=== PATIENT | male | born 1945 | race Caucasian/White ===

== ENCOUNTER 2023-07-23 13:46 | Emergency (ER) | payer OTHER, SELFPAY ==
[2023-07-23 13:48] VITALS: BP 175/83
[2023-07-23 17:16] VITALS: BP 186/83
--- NOTE | 2023-07-23 20:59 | ED.GENMED ---
History of Present Illness
General
Chief Complaint: Head Injury
Source: patient
Exam Limitations: none
Time Seen by Provider: 07/23/23 15:42
Nursing documentation reviewed up to this point in time: agreed with
Travel History
Have you had any contact with someone who has COVID-19?: No
Do you have any symptoms of coronavirus? Fever > 100 degrees, chills, cough, shortness of breath, sore throat, loss of taste or smell, muscle aches, or headache?: No
History of Present Illness
History of Present Illness:
Patient states he tripped and fell this AM. Hit face on floor. No LOC. Sustained lac to right eyebrow, bruising to right orbit. He was evaluated at urgent care, laceration repaired. Sent to ED for head CT. Also complaints of right wrist pain.
Brought to ED by family for eval.
Past History
Past History
ED Past Medical History: None
Review of Systems
Review of Systems
Allergies reviewed?: Yes
All Other Systems: ROS reviewed and negative except as documented in HPI and ROS
Constitutional: Reports no symptoms
EENT: Reports no symptoms
Respiratory: Reports no symptoms
Cardiac: Reports no symptoms
ABD/GI: Reports no symptoms
Musculoskeletal: Reports joint pain (right wrist)
Skin: Reports other (Laceration to right eyebrow (repaired at ))
Neurological: Reports no symptoms
Psychiatric: Reports no symptoms
Phy Exam
General Physical Exam
General Presentation: well appearing and no apparent distress
General age: appears stated age
General Skin: warm and dry
General Habitus: normal
General Mental: alert
Eye Exam
Eye Exam: PERRL, EOMI, conjunctiva normal and globe normal
Neurological Exam
Neurological Exam: alert, oriented x3, CN II-XII intact, no motor deficits, no sensory deficits and speech normal
Ginette Coma Scale
Eye Opening: Spontaneous
Verbal Response: Oriented
Motor Response: Obeys Commands
GCS Total Score: 15
Musculoskeletal Exam
Musculoskeletal Exam: neuro vasc intact
Skin Exam
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 Hematoma to right orbit)
Psychiatric Exam
Psychiatric Exam: normal mood/affect
Course
Orders/Labs/Results
Orders:
Orders
07/23/23 13:57
CR Wrist - Right Min 3 Views Urgent
Comment:
Reason For Exam: injury/pain
07/23/23 13:58
CT Facial Bones W/o Iv Contras Urgent
Comment:
Reason For Exam: s/p fall,swelling and bruising of face
CT Head W/o Iv Contrast Urgent
Comment:
Reason For Exam: s/p fall/head injury
Vital Signs
Initial and Last Documented VS:
Initial Vital Signs
Temp Pulse Resp BP Pulse Ox
97.9 F 61 18 175/83 99
07/23/23 13:48 07/23/23 13:48 07/23/23 13:48 07/23/23 13:48 07/23/23 13:48
Last Documented Vital Signs
Temp Pulse Resp BP Pulse Ox
97.9 F 69 16 186/83 98
07/23/23 13:48 07/23/23 17:16 07/23/23 17:16 07/23/23 17:16 07/23/23 17:16
*Radiology
Radiology exam reviewed: radiology read reviewed
*Pulse Oximetry
Patient hypoxic: no
*Critical Care Note
Total Time (30-74mins, 75-104mins- exclusive of procedures): Not Applicable
ED Attending Note
-
Portions of this chart may have been created with voice recognition software.� Occasional wrong word or��sound alike� substitutions may have occurred due to the inherent limitations of voice recognition software.
Discharge Plan
Departure
Patient Disposition: Home (Routine Discharge)
Date of Disposition: 07/23/23
Time of Disposition: 17:03
Patient with high blood pressure during this ER visit?: No
Condition: Good
Discharge Problem:
Head injury
Instructions: Concussion, Adult (DC), Head Injury in Adults (DC)
Referrals:
Justin Hayes, DO [Family Provider] - Follow up in 2-3 days
Interventions
Interventions:
*Risk Screen - Suicide Last Done: 07/23/23 17:16
*General Assessment Last Done: 07/23/23 17:16
*Neglect/Abuse Screening Last Done: 07/23/23 17:16
ED- Fall Risk Assessment Last Done: 07/23/23 17:16
*ED COVID-19 Vaccine History Last Done: 07/23/23 13:48
*Nursing Disposition Last Done: 07/23/23 17:21
ED- Neurological Assessment Last Done: 07/23/23 15:34
ED-Skin Assessment Last Done: 07/23/23 15:33
Discharge Date and Time
Discharge Date/Time: 07/23/23 17:22
Musculoskeletal Injury Exam
Musculoskeletal Injury Exam
Right Wrist:
Pain with Movement?: Moderate
Tender to palpation?: Moderate
Soft tissue swelling?: None
External deformity and angulation?: None
Joint effusion?: None
Contusion?: None
Hematoma-local bleeding into tissue?: None
Strain- Sprain- Tear (Connective tissue injury)?: Moderate
Crepitus with movement?: No
Joint instability?: No
Malalignment/deformity?: No
Range of motion: Limited
Distal skin color and temperature: normal-warm & good color
Capillary Refill: normal
Normal distal neurovascular exam?: Yes
Peripheral Pulses: radial (right): 3+
== END 2023-07-23 17:22 | disposition home or self-care (01) ==
LOC: EMR 13:46
PROVIDERS: EMERGENCY PHYSICIAN Emergency Medicine; FAMILY PHYSICIAN Family Medicine
DX: S09.90XA Unspecified injury of head, initial encounter (principal); S01.111A Laceration without foreign body of right eyelid and periocular area, initial encounter; W01.0XXA Fall on same level from slipping, tripping and stumbling without subsequent striking against object, initial encounter; M25.531 Pain in right wrist
CPT/HCPCS: 99284; 70450; 70486; 73110

== ENCOUNTER → 2023-09-20 08:51 | Outpatient (REF) | payer OTHER, SELFPAY | LOC: RCS 08:51 | PROVIDERS: ATTENDING PHYSICIAN Internal Medicine; FAMILY PHYSICIAN Family Medicine | DX: I35.0 Nonrheumatic aortic (valve) stenosis (principal); I45.10 Unspecified right bundle-branch block; I10 Essential (primary) hypertension | CPT/HCPCS: 93306 ==

== ENCOUNTER 2024-10-02 21:58 | Inpatient (IN) | payer OTHER, SELFPAY ==
[2024-10-02] VITALS (15 sets, daily range): BP systolic 54–108; BP diastolic 0–81; BMI 21.3; BMI 21.8
[2024-10-02 19:51] LABS: % Basophils 0.1 % (0-2); % Immature Granulocytes 0.7 % (0-0.5); % Monocytes 5.5 % (1.7-9.3); % Neutrophils 85.7 % (42.2-75.2); Absolute Immature Granulocytes 0.1 10^3/uL (0-0.05); Absolute Lymphocytes 1.4 10^3/uL (1.2-3.4); Absolute Neutrophils 15.2 10^3/uL (1.4-6.5); Hemoglobin 8.8 g/dL (13.0-18.0); Mean Corp Hgb Conc. 33.8 g/dL (33.0-37.0); Mean Corpuscular Hgb 30.9 pg (27.0-31.0); Mean Corpuscular Volume 91.2 fL (80.0-94.0); Mean Platelet Volume 10.4 fL (7.4-10.4); Nucleated Red Blood Cells % 0 % (-); Platelet Count 259 10^3/uL (130-400); Red Blood Cell Count 2.85 10^6/uL (4.70-6.10); Red Cell Dist. Width 13.2 % (11.5-14.5); White Blood Cell Count 17.8 10^3/uL (4.8-10.8)
[2024-10-02 20:06] LABS: Lactic Acid 7.6 mmol/L (0.7-2.0)
[2024-10-02 20:08] LABS: AST (SGOT) 102 U/L (17-59); Alkaline Phosphatase 78 U/L (38-126); Blood Urea Nitrogen 113 mg/dl (9-20); Calcium 8.2 mg/dl (8.4-10.2); Carbon Dioxide 7 mmol/L (22-30); Chloride 104 mmol/L (98-107); Glucose 72 mg/dl (70-99); Potassium 5.7 mmol/L (3.5-5.1); Sodium 138 mmol/L (135-145); Total Bilirubin 0.4 mg/dl (0.2-1.3); Total Protein 6.2 g/dl (6.3-8.2)
[2024-10-02 20:16] LABS: Urine Albumin 3+ (Neg - Trace); Urine Bilirubin Negative (Negative); Urine Character Clear (Clear); Urine Color Yellow; Urine Glucose Negative (Negative); Urine Ketone Negative (Negative); Urine Leukocyte Negative (Negative); Urine Nitrite Negative (Negative); Urine Occult Blood 4+ (Negative); Urine Urobilinogen Negative (Neg - 1+)
[2024-10-02 20:17] LABS: ALT (SGPT) 76 U/L (0-50)
[2024-10-02 20:28] LABS: Urine Squamous Cell 0-2 /LPF (Few)
[2024-10-02 20:29] LABS: Urine Bacteria Few (Negative); Urine Red Blood Cell 0-2 /HPF (0-2); Urine White Cell 0-2 /HPF (0-5)
--- NOTE | 2024-10-02 20:29 | ED.GENMED ---
History of Present Illness
General
Chief Complaint: Weakness
Source: patient, spouse and family
Exam Limitations: clinical condition
Time Seen by Provider: 10/02/24 19:27
Nursing documentation reviewed up to this point in time: agreed with
History of Present Illness
History of Present Illness:
Patient with history of Alzheimer's disease, currently taking Bactrim for UTI, presents to ED from home secondary to worsening confusion, generalized weakness, along with decreased appetite. Upon arrival, patient appears profoundly weak, but does
not have any complaints. Per spouse and daughter, patient has not had previous history of similar symptoms. 1 week ago, patient was seen at PCPs office during routine visit, where he was noted to be mildly confused. Urine test in the office
revealed UTI and was started on Bactrim. Since starting Bactrim, patient's family feels as though his symptoms have worsened significantly. Denies coughing. Denies vomiting. Denies diarrhea.
Past History
Past History
ED Past Medical History: None
Review of Systems
Review of Systems
Allergies reviewed?: Yes
Unable to obtain full review of systems at this time due to: dementia
All Other Systems: Not applicable
Phy Exam
Physical Exam
Physical Exam:
Physical Exam
General: moderate distress, acutely ill. afebrile. weak appearing
Head: nc/at. eomi
Neck: supple. no meningeal signs.
Heart: s1/s2 regular rate and rhythm
Lungs: no acute respiratory distress. clear bilaterally
Abdomen: normal bowel sounds. not tender.
Neuro: alert and oriented x 2. no focal neurological deficits
Skin: no rash
Psychiatric: well kept. interactive and cooperative
Extremities: no edema. no calf tenderness.
Course
Orders/Labs/Results
Orders:
Orders
10/02/24 Dinner
NPO
Allow oral meds: Yes
Allow clear liquids: Sips of Clears
10/02/24 19:37
Electrocardiogram (*1) Urgent
Reason for Study: Other
Other Reason for Exam: Possible Sepsis
Cardiac Monitoring- Treatment ONCE
EKG- Treatment ONCE
IV Insert/Care/Rem.- Treatment PRN
Straight cath- Treatment ONCE
10/02/24 19:39
Lactic Acid Q4H
Comment: ON ICE, CANCEL 2ND ORDER IF FIRST LACTIC ACID LEVEL <2
10/02/24 19:40
Complete Blood Count/With Diff Urgent
Comprehensive Metabolic Panel Urgent
Blood Culture Q20M
EITAN Source: Blood/Venous
Specimen Description:
Comment: Urgent from separate sites. If patient screens positive for possible sepsis
Urine Culture Urgent
EITAN Source: U
Specimen Description:
Date Specimen was Collected: 10/02/24
Time Specimen was Collected: 19:37
Comment: ADD ON
10/02/24 20:10
Urinalysis Reflex To Culture Urgent
Date Specimen was Collected: 10/02/24
Time Specimen was Collected: 19:37
Urine Microscopic Reflex Cult Urgent
10/02/24 20:20
0.9% Sodium Chloride 1000 ml [Nss] 1,000 ml IV BOLUS
Piperacillin/Tazo 3.375 Gram [Zosyn] 3.375 gram in 50 ml IV NOW
CR Chest Portable - 1 View Urgent
Comment:
Reason For Exam: cough/mental status change
Reason Study Needs to be Portable: Patient Unstable
10/02/24 20:27
Blood Culture Q20M
EITAN Source: Blood/Venous
Specimen Description:
Comment: Urgent from separate sites. If patient screens positive for possible sepsis
10/02/24 20:37
Vancomycin [Vancocin] 1,500 mg 0.9% Sodium Chloride 500 ml [Nss] 500 ml IV NOW
10/02/24 20:40
Arterial Blood Gas Urgent
%Oxygen/Room Air: 95
10/02/24 20:49
PT/INR [Prothrombin Time] Urgent
PTT Urgent
Troponin I Urgent
10/02/24 20:59
Ondansetron Injectable [Zofran] 4 mg IV NOW STA
Sodium Bicarbonate 50 meq IV NOW STA
10/02/24 21:07
Type+Screen Stat
10/02/24 21:09
COVID-19 Antigen Urgent
Source: Nasal Swab
Influenza A+B Rapid Molecular Urgent
EITAN Source: Nasal Swab
Specimen Description:
Vancomycin MRSA PCR Screen Routine
EITAN Source: N
Specimen Description:
10/02/24 21:12
0.9% Sodium Chloride 1000 ml [Nss] 1,000 ml IV BOLUS
10/02/24 21:33
Sodium Zirconium Cyclosilicate [Lokelma] 10 gram PO NOW STA
10/02/24 21:38
Admit/Transfer Patient As Directed
Co-Sign Provider:
Level of Care: Inpatient admission
Assign to:: ICU
Physician / Group: Jason Dominguez
Diagnosis: sepsis, UTI, ARF, transaminitis, hyperkalemia, GI bleed
Reason for Hospitalization: sepsis, UTI, ARF, transaminitis, hyperkalemia, GI bleed
Expected length of stay greater than two midnights?: Yes
ELOS- Estimated Length of Stay in days: 3
I certify the patient meets the requirements for IP care: Yes
ABO2 Stat
BBK Wristband Number:
Associate notified that ABO2 has been ordered: MARIO
Date: 10/02/24
Time: 21:36
Business Technology Teacher ID: [id number]
PRN Pain Medication Management As Directed
May give lesser potent ordered pain med per pt: Yes
preference::
Protocol:: Medication orders for pain may be administered in a
manner that supports deferring to patient preference
when the pt is:
- Requesting an ordered lesser potent pain medication.
Least to most potent pain medications are defined
as: acetaminophen < NSAID < tramadol < opioids
(morphine, oxycodone, hydromorphone).
- Requesting a lesser dose of the same medication IF
ORDERED.
- Requesting a less intrusive route of administration
if both routes are prescribed by the provider (PO <
IV).
10/02/24 21:41
Code Status As Directed
Resuscitation Status: Do not resuscitate
Reached after discussion with pt or family/Healthcare POA: Yes
Decision communicated with: Spouse and children
DNR Bracelet Application ONCE
10/02/24 21:45
NORepinephrine 4 MG/250 ML [Levophed] 4 mg in 250 ml IV PER PROTOCOL
Initial dose in mcg/min, then titrate:: 2
Titrate to keep:: MAP > 65 mmHg
Titrate by mcg/min:: 1-2 mcg/min
Frequency of titrations (minutes):: 5
Maximum dose in ICU in mcg/min:: 30
Maximum dose in IMU in mcg/min:: 8
Maximum dose in IVU in mcg/min:: 4
Begin to taper infusion when:: Remained at goal for 4hrs
Taper by mcg/min:: 1-2 mcg/min
Frequency of taper (minutes) if patient maintains goal:: 30
Taper to off?: Yes
If infusion off & no longer maintaining goal:: Contact Provider
10/02/24 22:00
Flush (0.9% Sodium Chloride) [Flush (Nss)] See Dose Instructions IV PER PROTOCOL
10/02/24 22:49
Acetaminophen [Tylenol] 650 mg PO Q4HPRN PRN
Cefepime HCl [Maxipime] 2,000 mg IV Q12H
Pantoprazole [Protonix IV] 40 mg IV BID
Sterile Water For Inj [Sterile Water For Injection 1000 ml] 1,000 ml Sodium Bicarbonate 150 meq IV 150 mls/hr
VANCOMYCIN Pharmacy to Dose [VANCOCIN Pharmacy to Dose] 1 each Pharmacy To Prepare [Call Pharmacy To Prepare] 0 ml IV PER PROTOCOL
10/02/24 22:49
[facility] Consult Urgent
Consulting Provider: Sloan Castro
Was physician already notified: Yes
Urine Creatinine Routine
Urine Osmolality Random [Osmolality, Random Urine] Routine
Urine Protein Routine
Urine Sodium Routine
Activity As Directed
Activity Level: As Tolerated
Bedside Glucose Monitoring-ONCE As Directed
Comment: upon arrival to ICU
Intake/ Output As Directed
Frequency: Per unit guidelines
Notify MD As Directed
Notify physician if: While in ICU level of care:
glucose greater than or equal to 180 mg/dL once, contact provider to initiate Critical
Care Glycemic Protocol Target Range 140-180 mg/dL.
Pneumatic Compression Sleeves As Directed
Type: Knee high
Vital Signs As Directed
Frequency: Per unit guidelines
Weight As Directed
Frequency: Daily
Comment: height and weight upon arrival to ICU.
Weight As Directed
Frequency: Once
Comment: on admission
O2 Therapy [RESP] Routine
Titrate/Wean O2 to maintain O2 sat greater than (%): 93
Special Instructions: PRN
wean as tolerated
DX Deep Vein Thrombosis Video Routine
10/02/24 23:03
Complement C3 Routine
Complement C4 Routine
H&H Urgent
Lactic Acid Q4H
Comment: ON ICE, CANCEL 2ND ORDER IF FIRST LACTIC ACID LEVEL <2
Magnesium Urgent
Comment: upon arrival to ICU (if not done in ED or in last 24 hours)
Phosphorus Urgent
Comment: upon arrival to ICU (if not done in ED or in last 24 hours)
10/03/24 05:37
NITESH, IgG Reflex to HEp-2 [S] IN AM
ANCA - MPO/PR3 Ab Profile [S] IN AM
Complete Blood Count/No Diff IN AM
Comprehensive Metabolic Panel IN AM
Rheumatoid Factor [Rheumatoid Agglutinin] IN AM
10/03/24 08:00
Donepezil HCl [Aricept] 10 mg PO DAILY
Memantine HCl [Namenda] 10 mg PO BID
Quetiapine Fumarate [Seroquel] 25 mg PO BID
azelastine 1 spray NASAL BID
Abnormal Lab Results
10/02/24 10/02/24 10/02/24
19:39 19:40 20:10
WBC 17.8 H 10^3/uL
(4.8-10.8)
RBC 2.85 L 10^6/uL
(4.70-6.10)
Hgb 8.8 L g/dL
(13.0-18.0)
Hct 26.0 L %
(39.0-52.0)
Abs Immat Gran (auto) 0.1 H 10^3/uL
(0-0.05)
Absolute Neuts (auto) 15.2 H 10^3/uL
(1.4-6.5)
Absolute Monos (auto) 1.0 H 10^3/uL
(0.1-0.6)
Immature Gran % 0.7 H %
(0-0.5)
Neutrophils % 85.7 H %
(42.2-75.2)
Lymphocytes % 8.0 L %
(20.5-51.1)
PT
pH
pCO2
pO2
HCO3
ABG O2 Sat (Measured)
Potassium 5.7 H mmol/L
(3.5-5.1)
Carbon Dioxide 7 L* mmol/L
(22-30)
BUN 113 H* mg/dl
(9-20)
Creatinine 9.0 H* mg/dL
(0.7-1.3)
Lactic Acid 7.6 H* mmol/L
(0.7-2.0)
Calcium 8.2 L mg/dl
(8.4-10.2)
AST 102 H U/L
(17-59)
ALT 76 H U/L
(0-50)
Troponin I
Total Protein 6.2 L g/dl
(6.3-8.2)
Ur Occult Blood Reflex 4+ A
(Negative)
Urine Bacteria (Reflex) Few A
(Negative)
Urine Albumin (Reflex) 3+ A
(Neg - Trace)
10/02/24 10/02/24
20:40 20:49
WBC
RBC
Hgb
Hct
Abs Immat Gran (auto)
Absolute Neuts (auto)
Absolute Monos (auto)
Immature Gran %
Neutrophils %
Lymphocytes %
PT 16.8 H Sec
(11.4-14.6)
pH 7.18 L*
(7.35-7.45)
pCO2 21 L mmHg
(35-48)
pO2 118 H mmHg
(83-108)
HCO3 7.8 L* mmol/L
(21-28)
ABG O2 Sat (Measured) 99.8 H %
(94-98)
Potassium
Carbon Dioxide
BUN
Creatinine
Lactic Acid
Calcium
AST
ALT
Troponin I 2.070 H* ng/ml
Total Protein
Ur Occult Blood Reflex
Urine Bacteria (Reflex)
Urine Albumin (Reflex)
10/02/24 19:40
10/02/24 19:40
Vital Signs
Initial and Last Documented VS:
Initial Vital Signs
Temp Pulse Resp BP Pulse Ox
98.0 F 77 12 101/52 98
10/02/24 19:23 10/02/24 19:23 10/02/24 19:23 10/02/24 19:23 10/02/24 19:23
Last Documented Vital Signs
Temp Pulse Resp BP Pulse Ox
97.8 F 67 15 90/62 96
10/03/24 11:53 10/03/24 11:05 10/03/24 11:05 10/03/24 11:00 10/03/24 11:47
MDM/Problems Addressed
MDM/Problems Addressed:
History and exam concerning for sepsis, likely secondary to UTI. Blood work significant for leukocytosis, elevated lactate level, as well as metabolic acidosis. Patient will be treated with broad-spectrum antibiotic.
Blood culture and urine culture pending.
Per family, patient is DNR/DNI.
*EKG
Interpreted by ED Provider?: Yes
EKG Intrepretation Date: 10/02/24
Heart Rate: 76
Rate: normal
Rhythm: sinus
[place]: normal axis
QRS Pattern: right bundle branch block
*Critical Care Note
Total Time (30-74mins, 75-104mins- exclusive of procedures): Not Applicable
ED Attending Note
-
Portions of this chart may have been created with voice recognition software.� Occasional wrong word or��sound alike� substitutions may have occurred due to the inherent limitations of voice recognition software.
Discharge Plan
Departure
Patient Disposition: Admit
Date of Disposition: 10/02/24
Time of Disposition: 20:35
Admit to: Telemetry
Presentation/result/management discussed w/ accepting MD/DO: Hospitalist
Discharge Problem:
Sepsis, Acute renal failure (ARF)
Interventions
Interventions:
*Risk Screen - Suicide Last Done: 10/03/24 01:58
*General Assessment Last Done: 10/02/24 19:23
*Neglect/Abuse Screening Last Done: 10/02/24 19:23
*ED- Fall Risk Assessment Last Done: 10/02/24 19:23
*ED COVID-19 Vaccine History Last Done: 10/02/24 23:10
*Nursing Disposition Last Done: 10/02/24 22:27
ED- Cardiac Assessment Last Done: 10/02/24 20:00
ED- Neurological Assessment Last Done: 10/02/24 20:00
ED- Pulmonary Assessment Last Done: 10/02/24 20:00
Discharge Date and Time
Discharge Date/Time: 10/02/24 22:48
[2024-10-02] MEDS: NSS 1000 IV ×2 (20:30→21:29)
[2024-10-02] MEDS: ZOSYN 50 IV (20:30)
--- NOTE | 2024-10-02 20:36 | HPS.HSE ---
Family Physician
-
Family Physician: Dr. GERALD MAYA
Chief Complaint
-
generalized weakness
History of Present Illness
Patient is a 79-year-old male with past medical history significant for essential hypertension, Alzheimer's Disease, CAD, type 2 diabetes, BPH and GERD who presented to [facility] ED worsening confusion, generalized weakness and decreased appetite.
Patient family at bedside to assist with HPI. Patient lives at home and has a generalized weakness that has progressively gotten worse in the last week. He did see PCP and started on Bactrim for UTI and has progressively gotten worse. Patient now
with increased confusion and decreased appetite. Family denies any fevers, chills, cough, shortness of breath, chest pain, nausea, vomiting, constipation or urinary symptoms. Patient is known to have chronic diarrhea.
Medical History
Past Medical History
Past Medical History: Reports Other
Additional Past Medical History:
essential hypertension
Alzheimer's Disease
CAD
type 2 diabetes
BPH
GERD
diverticulitis
hyperlipidemia
Past Surgical History: Reports Other
Additional Past Surgical History:
laparoscopic left colon resection for diverticular disease
right inguinal hernia repair
cataract surgery of both eyes
coronary angioplasty with stent placement
cardiac cath
Social History
Tobacco: Former Smoker (quit >30 years ago )
Alcohol: Daily (1 beer daily )
Personal:
Living: With Family
Employment: Retired
Family History
Family History: Other (Father: CAD; Mother: metastatic breast cancer )
Allergies / Home Medications
Allergies reflects when Allergies were last updated in [employer].
Home Medications with original date entered in [employer]
Allergy/Medication List:
Allergies
Allergy/AdvReac Type Severity Reaction Status Date / Time
No Known Allergies Allergy Verified 10/02/24 19:21
Home Medications
aspirin 325 mg tablet 325 mg PO DAILY 10/02/24
azelastine 137 mcg (0.1 %) nasal spray 1 spray intranasal BID 10/02/24
donepezil 10 mg tablet 10 mg PO DAILY 10/02/24
losartan 50 mg tablet 50 mg PO DAILY 10/02/24
memantine 10 mg tablet 10 mg PO BID 10/02/24
metformin 500 mg tablet 500 mg PO BID 10/02/24
quetiapine 25 mg tablet 25 mg PO BID 10/02/24
rosuvastatin 40 mg tablet 40 mg PO DAILY 10/02/24
sulfamethoxazole 800 mg-trimethoprim 160 mg tablet (Bactrim DS) 1 tab PO BID Infection 10/02/24
Review of Systems
-
Unable to obtain full review of systems at this time due to: Dementia
History Source: Patient and Family
Abdomen/GI: Reports Other (decreased appetite )
Neurological: Reports Weakness (generalized ) and Other (increased confusion)
Physical Exam
Vital Signs
Vital Signs
Temp Pulse Resp BP Pulse Ox
98.0 F 75 11 108/50 96
10/02/24 19:23 10/02/24 20:05 10/02/24 20:05 10/02/24 20:05 10/02/24 20:00
Physical Exam
General: Well Developed, No Apparent Distress, Comfortable, Chills and Poor Appetite
HEENT: NormoCephalic, Moist mucous membranes, Atraumatic, Heeney Conjunctivae, Nose Appears Normal and Ears Appear Normal
Respiratory: Clear
Cardiac: S1/S2, Regular Rhythm and Rub
GI: Soft, Non Tender and Normal Bowel Sounds; No Organomegaly
Rectal: Hem Positive
Genito-urinary: Deferred by me
Musculoskeletal: No Clubbing, Cyanosis and No Edema
Skin: Warm and IV/Catheter Site
Neuro: Awake, Alert and Nonfocal/grossly intact
Psych: Calm and Apparent Dementia
Laboratory Results
-
10/02/24 19:40
10/02/24 19:40
Laboratory Results
Lactic Acid 7.6 mmol/L (0.7-2.0) H* 10/02/24 19:39
Total Bilirubin 0.4 mg/dl (0.2-1.3) 10/02/24 19:40
AST 102 U/L (17-59) H 10/02/24 19:40
ALT 76 U/L (0-50) H 10/02/24 19:40
Alkaline Phosphatase 78 U/L (38-126) 10/02/24 19:40
Data Reviewed
-
Medical Tests (Nuc Med, Echo, EKG etc): Report Reviewed by me (EKG: NORMAL SINUS RHYTHM RIGHT BUNDLE BRANCH BLOCK)
Lab Data: Labs Reviewed by me (WBC 17.8, Neut 85.7, hgb 8.8, hct 26.0, HCO3 7, BUN 113, Creat 9.0, Lactic 7.6, K+ 5.7, Ca+ 8.2, AST 102, ALT 76)
Impression/Plan
-
IMPRESSION/PLAN:
#sepsis likely 2/2 UTI
#lactic acidosis
treated for recent UTI by primary care, failed Bactrim outpatient
WBC 17.8, Neut 85.7, HCO3 7, Lactic 7.6
UA: not indicative of UTI (failed outpatient therapy of Bactrim)
Urine Cx: pending
Blood Cx: pending
Influenza: pending
Covid: pending
EKG: NORMAL SINUS RHYTHM
RIGHT BUNDLE BRANCH BLOCK
CXR: No acute cardiopulmonary process.
- Admit to ICU
- Consult booth cleaner
- Consult ID
- Bicarb gtt @ 80cc/hr
- IV Vanco and Cefepime
- Levophed gtt
- Request records from primary care
#acute renal failure
#BPH
BUN 113, Creat 9.0, K+ 5.7, Ca+ 8.2, est CrCl 6, eGFR 5.45
- Consult Nephrology
- Lokelma 10mg now
- rio IVF
- trend BMP
- bladder scan/straight cath order
#transaminitis
AST 102, ALT 76
- trend LFTs
#GI bleed
#anemia
stool heme positive
hgb 8.8, hct 26.0
- trend H/H
- blood consent obtained
- Protonix IV BID
- consider GI consult if worsening symptoms or anemia
#essential hypertension
- hold losartan
#Alzheimer's Disease
- continue donepezil, memantine and quetiapine
#CAD
- hold aspirin
#type 2 diabetes
- hold metformin
#GERD
- IV Protonix BID
#hyperlipidemia
- hold rosuvastatin
#diverticulitis
s/p colon resection >15 years ago
Code status: DNR
DVT prophylaxis: SCDs
[2024-10-02 20:39] LABS: Estimated Creatinine Clearance 6 ml/min; eGFR 5.45
[2024-10-02 20:46] LABS: B.E. -18.8 mmol/L; HCO3 7.8 mmol/L (21-28); O2 Saturation % 99.8 % (94-98); PCO2 21 mmHg (35-48); PO2 118 mmHg (83-108)
[2024-10-02 20:48] LABS: O2 Therapy 95
[2024-10-02 20:49] LABS: pH 7.18 (7.35-7.45)
[2024-10-02 21:06] LABS: INR 1.33; PT 16.8 Sec (11.4-14.6)
[2024-10-02 21:07] LABS: APTT 29.3 Sec (23.4-35.0)
--- NOTE | 2024-10-02 21:12 | W.PN.UPDATE ---
Update Note
Progress Note Update
Patient seen in conjunction with CARPET MECH[employer]IC. I agree defined on exam physical. I concur with assessment plan listed otherwise.
He is a 79-year-old male with past medical history notable for hypertension, hyperlipidemia, CAD, NIDDM, history of aortic stenosis with a valve area of 0.6 and high gradient, late onset dementia with albuterol changes who lives at home and was
brought in by family for worsening weakness over the last 1 week.
Patient was seen by PMD approximately 1 week ago after family noted some weakness in the lethargy. He had a UA that was positive. Patient was started on Bactrim at that time. The following day after initiation of Bactrim he developed worsening
weakness. He is now more somnolent. Family reports reduced appetite minimal p.o. intake. They did note worsening of his chronic diarrhea but denies any vomiting. Patient himself reports nausea but no vomiting. He denies any abdominal pain. He
denies any food fear. Patient denies flank pain. There has been no fevers or chills noted at home. He usually able to ambulate by himself but now cannot even get up and family just bought him a walker to assist with ambulation. She has not
improved despite the 6 days of Bactrim departing to the emergency department for evaluation.
Patient has not been hospitalized for anything recently. Has history of left colon resection for diverticulitis, right inguinal hernia repair and coronary stent placement. History of BPH but not currently treated and family denies any history of
retention issues. He denies any focal neurological deficits such as slurring of speech, expressive aphasia, facial droop or focal weaknesses.
In the emergency department the patient remains afebrile with a temp of 98.0, blood pressure of 108/50, pulse of 75 respirate rate of 12 and satting 96% on room air. His urinalysis was negative. Chest x-ray shows no acute infiltrates. ECG shows a
normal sinus rhythm with right bundle.
CBC notable for leukocytosis 17.8, hemoglobin of 8.8 and a platelet count of 259. Electrolytes were notable for a potassium of 5.7, bicarb of 7, BUN of 113 and creatinine of 9.0. mL he had normal total bilirubin, AST slightly elevated 102 ALT 276.
ABG 7.1 12/28/7.8. Lactate 7.8.
1. Sepsis - Possibly pyelonephritis unresponsive to bactrim but u/a is clear and patient without flank pain or other signs of pyelo. Afebrile. No signs of meningitis. Xray is clear and on room air with no cough.
- admit to ICU
- blood cultures, urine culture, COVID test
- s/p Vanc. Will continue per renal dosing, likely not needing redose
- zosyn given, will continue with cefepime dosing for renal failure
- procal not useful
- u/s of the abdomen to rule out acalculous cholecystitis and unilateral hydro/fluid collection
- s/p 1 L NS, HD stable and not tachycardic, will continue with 150 meq bicarb at 80ml/hr for now
- ID consultation
2. Renal Failure - Likely ATN on CKD. Suspect oliguric. Cr 9, BUN 118, severe metabolic acidosis with bicarb of 7, pH 7.18. K 5.7. No known history of renal failure. Reported BPH but not on any treatment. Recently treated with bactrim x 6 days
(unlikely)
- ATN most likely in setting of sepsis. U/A negative for WBC. Has 4+ blood and 3+ albumin. H/O NIDDM and had a straight catherization for sample. Cannot rule out GN
- i/o
- renal u/s
- urine sodium, cr, protein
- serologies to include screening max, anca, rf, complement c3/c4, aso
- obtain outpatient records
- holding losartan, statin, metformin
- d/c'd bactrim
- iv bicarb, K is ok for now, will start lokelma x 1 dose.
- nephrology consult
3. Anemia/GI bleed - On aspirin 325 daily, heme + stools, Hgb 8.8, brown stools. HD stable.
- type and screen
- H&H q 8 for now
- IV PPI BID
- stool guaiac testing
- no AC for now and holding aspirin
4. Troponin elevation - No chest pain. ECG is non-ischemic. Hypotensive, with , sepsis, renal failure. Suspect non-ischemic injury secondary to underlying sepsis rather than a primary cardiogenic process exacerbated by renal failure. No pulm
edema or peripheral edema.
- had aspirin daily and with concern for bleeding, will hold off ac for now, hold off further aspirin pending troponin trending
- trend troponin for now
- echo in am
5. DM II
- holding metformin
- slidng scale insulin
6. HTN - normotensive, sepsis
- holding losartan as above
7. Aortic stenosis - Valve area 0.6. Notes from cardiology indicate unlikely a surgical candidate given progressing dementia. Possibly contributing to hemodynamics versus endocarditis
- echo
- esr/crp
DVT PPX - SCDs, start heparin s/q if H&H stable
Code Status - DNR/DNI. No surgical intervention.
[2024-10-02] MEDS: SODIUM BICARBONATE 50 MEQ IV ×2 (21:15→23:55)
[2024-10-02] MEDS: ZOFRAN 4 MG IV (21:15)
[2024-10-02] MEDS: VANCOCIN 530 MG IV (21:27)
[2024-10-02 21:40] LABS: COVID-19 Antigen Negative (Negative)
[2024-10-02 22:48] LABS: Glucose - Point of Care 52 mg/dl (70-99)
[2024-10-02] MEDS: DEXTROSE 50% SYRINGE 12.5 GRAMS IV (22:50)
[2024-10-02 23:07] LABS: Glucose - Point of Care 162 mg/dl (70-99)
[2024-10-02 23:14] LABS: Hematocrit 24.6 % (39.0-52.0); Hemoglobin 8.4 g/dL (13.0-18.0)
[2024-10-02 23:25] LABS: Lactic Acid 5.9 mmol/L (0.7-2.0)
[2024-10-02 23:28] LABS: Magnesium 2.2 mg/dl (1.6-2.3)
[2024-10-02] MEDS: NSS (PRESERVATIVE FREE) 10 ML IV (23:30)
[2024-10-02] MEDS: PROTONIX IV 40 MG IV (23:30)
[2024-10-02] MEDS: SODIUM BICARBONATE 1150 MEQ IV (23:30)
[2024-10-02 23:35] LABS: Complement C3 80 mg/dl (88-165)
[2024-10-02 23:49] LABS: Blood Urea Nitrogen 111 mg/dl (9-20); Calcium 7.3 mg/dl (8.4-10.2); Carbon Dioxide 7 mmol/L (22-30); Chloride 108 mmol/L (98-107); Glucose 145 mg/dl (70-99); Potassium 5.5 mmol/L (3.5-5.1); Sodium 139 mmol/L (135-145)
[2024-10-02 23:54] LABS: Estimated Creatinine Clearance 7 ml/min; eGFR 5.92
[2024-10-03] VITALS (35 sets, daily range): BP systolic 69–181; BP diastolic 26–147; BMI 21.8
[2024-10-03 00:05] LABS: Glucose - Point of Care 137 mg/dl (70-99)
--- NOTE | 2024-10-03 00:48 | PTCARENOTE ---
Pt received at 22:40 from ED to ICU room 3369, arrived via stretcher. Pt drowsy, easily arousable to verbal stimuli, SAMUEL, oriented to self. Opens eyes and follows simple commands at times, slow and confused speech. When asked the year, pt stated
that it is 1889. SR w/ 1st degree AVB, BBB, and occasional PVCs. DP pulses by doppler. RA, pulse ox 93%. Temp 96.1 rectally, yas hugger ordered and applied. RA, breath sounds diminished t/o. +bowel sounds, no BM at this time. CC applied, no urine
output. Overall pale appearing w/ cyanotic fingers, toes, nailbeds, ears. Knees and bottom of feet cold and appear mottled. Skin cool to the touch, feet cold. Gums appear pale. R lower back red bruise, B/L heels boggy, sacrum red non-blanchable
areas.
On arrival pts BS = 52, 1/2 amp D50 given, repeat BS 162. Bicarb gtt infusing as ordered, x1 amp bicarb given for CO2 = 7 on BMP. Levophed gtt continues to maintain MAP > 65.
[2024-10-03 01:58] LABS: Venous Blood Gas B.E. -15.9 mmol/L (-4 to +4); Venous Blood Gas HCO3 11.3 mmol/L (22-27); Venous Blood Gas O2 Sat % 94.7 %; Venous Blood Gas pCO2 31 mmHg (35-48); Venous Blood Gas pO2 64 mmHg (30-50)
[2024-10-03 01:59] LABS: Venous Blood Gas pH 7.17 (7.32-7.43)
--- NOTE | 2024-10-03 05:13 | PTCARENOTE ---
Temp now 97.7, yas hugger placed on ambient. Remains on levophed for MAP > 65. Skin color remains generally pale, slight pink now. Cyanosis improved. Continues to be cool to the touch. Intermittently more alert, remains confused to place and time.
[2024-10-03 05:50] LABS: Hematocrit 24.6 % (39.0-52.0); Hemoglobin 8.3 g/dL (13.0-18.0); Mean Corp Hgb Conc. 33.7 g/dL (33.0-37.0); Mean Corpuscular Hgb 30.7 pg (27.0-31.0); Mean Corpuscular Volume 91.1 fL (80.0-94.0); Mean Platelet Volume 10.7 fL (7.4-10.4); Platelet Count 275 10^3/uL (130-400); Red Cell Dist. Width 13.3 % (11.5-14.5); White Blood Cell Count 19.5 10^3/uL (4.8-10.8)
[2024-10-03] MEDS: MAXIPIME 1000 MG IV (05:57)
[2024-10-03] MEDS: STERILE WATER FOR INJECTION 10 ML IV (05:57)
[2024-10-03 05:59] LABS: Lactic Acid 3.5 mmol/L (0.7-2.0)
[2024-10-03 06:13] LABS: ALT (SGPT) 66 U/L (0-50); AST (SGOT) 136 U/L (17-59); Albumin 3.3 g/dl (3.5-5.0); Alkaline Phosphatase 70 U/L (38-126); Blood Urea Nitrogen 119 mg/dl (9-20); Calcium 7.2 mg/dl (8.4-10.2); Carbon Dioxide 13 mmol/L (22-30); Chloride 105 mmol/L (98-107); Glucose 134 mg/dl (70-99); Potassium 5.2 mmol/L (3.5-5.1); Sodium 139 mmol/L (135-145); Total Bilirubin 0.3 mg/dl (0.2-1.3); Total Protein 5.4 g/dl (6.3-8.2)
[2024-10-03 06:24] LABS: Estimated Creatinine Clearance 6 ml/min
--- NOTE | 2024-10-03 07:45 | W.PN.HOSP.TC ---
Today's Communication/Plan
-
see A/P
Assessment / Plan
Assessment / Plan
HPI: 79-year-old male with past medical history significant for essential hypertension, Alzheimer's Disease, CAD, type 2 diabetes, BPH, GERD, aortic stenosis; presented to ED with worsening confusion, generalized weakness and decreased appetite.
Patient's family at bedside to assist with HPI. Patient lives at home and has a generalized weakness that has progressively gotten worse in the last week. He did see PCP and started on Bactrim for UTI and has progressively gotten worse. Patient now
with increased confusion and decreased appetite. Family denies any fevers, chills, cough, shortness of breath, chest pain, nausea, vomiting, constipation or urinary symptoms. Patient is known to have chronic diarrhea.
A/P:
# Confusion 2/2 acute metabolic encephalopathy due to sepsis/uremia, in setting of underlying Alzheimer's Disease
Monitor MS
baseline MS is awake, can recognize family, but not always orientated to date/month
# Septic shock POA, source possibly pyelonephritis
noted pt was recently started with Bactrim for presumed UTI (per family, was diagnosed based on increased confusion)
Follow blood cultures x2, urine culture
CXR clear, COVID/Flu negative
cont cefepime, vancomycin
Abd US ordered to eval for acalculous cholecystitis and unilateral hydro/fluid collection
ID consultation
cont Levophed for BP support
# LETHA/Renal Failure, likely ATN on CKD.
# severe metabolic acidosis POA
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
Suspect oliguric. Cr 9 on admission, unknown baseline SCr (trying to find out from PCP)
Check renal US
Check for urine sodium, Cr
Follow serologies to include screening NITESH, ANCA, RF, ASO, protein electrophoresis
Complement c3/c4 acceptable
holding losartan, statin, metformin, d/c'ed bactrim
s/p iv bicarb, cont bicarb drip
nephrology consult
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
Hgb has been stable at around 8
cont empiric IV PPI BID
no AC for now and holding aspirin
# Troponin elevation 2/2 non-ischemic myocardial injury secondary to underlying sepsis exacerbated by renal failure.
# Aortic stenosis.
Notes from cardiology indicate unlikely a surgical candidate given progressing dementia.
Check echo
# NIDDM
holding metformin
ISS
# HTN
Holding losartan
DVT PPX - SCDs, to start heparin SQ as H&H stable
Code Status - DNR/DNI. No surgical intervention.
DW RN
DW and daughter at bedside
CC time 40 min
Anticipated Discharge: > 48 hours
Subjective/Interval History
-
Date of Service: October 03, 2024
Objective Data
-
Labs:
Laboratory Results
10/02/24 10/02/24 10/02/24
19:40 20:40 20:49
WBC 17.8 H
Hgb 8.8 L
Hct 26.0 L
Plt Count 259
PT 16.8 H
INR 1.33
APTT 29.3
HCO3 7.8 L*
Sodium 138
Potassium 5.7 H
Chloride 104
Carbon Dioxide 7 L*
BUN 113 H*
Creatinine 9.0 H*
Glucose 72
Calcium 8.2 L
Total Bilirubin 0.4
AST 102 H
ALT 76 H
Alkaline Phosphatase 78
10/02/24 10/03/24 10/03/24
23:03 05:37 11:30
WBC 19.5 H
Hgb 8.4 L 8.3 L Pending
Hct 24.6 L 24.6 L Pending
Plt Count 275
PT
INR
APTT
HCO3
Sodium 139 139
Potassium 5.5 H 5.2 H
Chloride 108 H 105
Carbon Dioxide 7 L* 13 L*
BUN 111 H* 119 H*
Creatinine 8.4 H* 8.8 H*
Glucose 145 H 134 H
Calcium 7.3 L 7.2 L
Total Bilirubin 0.3
AST 136 H
ALT 66 H
Alkaline Phosphatase 70
10/03/24 10/03/24
17:30 23:30
WBC
Hgb Pending Pending
Hct Pending Pending
Plt Count
PT
INR
APTT
HCO3
Sodium
Potassium
Chloride
Carbon Dioxide
BUN
Creatinine
Glucose
Calcium
Total Bilirubin
AST
ALT
Alkaline Phosphatase
Vital Signs:
Vital Signs
Temp Pulse Resp BP Pulse Ox
36.3 C 70 13 106/64 95
10/03/24 01:00 10/03/24 03:00 10/03/24 03:00 10/03/24 02:31 10/03/24 03:00
I&O
10/02/24 10/03/24 10/04/24
06:59 06:59 06:59
Intake Total 2049
Balance 2049
Review of Systems
-
Unable to obtain full review of systems at this time due to: Dementia and Acuity
Physical Exam
-
General: Well Developed, Well Nourished, No Apparent Distress, Comfortable and Appears Chronically Ill; Negative Respiratory Distress
HEENT: Normocephalic, Atraumatic, Nose Appears Normal and Ears Appear Normal; Negative Oxygen
Respiratory: Clear to Auscultation and Non Labored Respirations; Negative Accessory Resp Muscle Use
Cardiac: Regular Rhythm and S1/S2
GI: Soft, Nontender, Nondistended and Normal Bowel Sounds
Skin: Warm and Dry
Neuro: Awake
Psych: Calm and Apparent Dementia
Data Reviewed
-
Diagnostic Radiology: Image personally visualized and interpreted and Report Reviewed by me
Labs: Labs Reviewed by me
[2024-10-03] MEDS: PROTONIX IV 40 MG IV (08:09)
[2024-10-03] MEDS: NSS (PRESERVATIVE FREE) 10 ML IV (08:09)
[2024-10-03 08:23] LABS: Erythrocyte Sed Rate 55 mm/hour (0-20)
--- NOTE | 2024-10-03 09:16 | CON.INTV ---
Consultation
Consultation Request
Date/Time Consultation Requested: 10/03/2024
Date/Time Consultation Performed: 10/03/2024
Medical History
-
Chief Complaint: Confusion, Weakness, UTI
History of Present Illness:
79-year-old male with a past medical history of hypertension, Alzheimer's disease, coronary artery disease, type 2 diabetes mellitus, BPH, GERD, aortic stenosis who presented to the emergency department with worsening confusion, generalized
weakness, decreased appetite that has gotten worse over the last week. Additional history obtained from family at bedside. Patient was in usual state of health until roughly about a week ago when he began to have increasing weakness without other
symptoms. He was making urine at this time, no fevers no chills, no shortness of breath, no chest pain, no urinary symptoms. Patient already had a follow up appointment scheduled with PCP during this time and so they went with these complaints. A
UA was reportedly done which was suggestive for UTI and he was started on Bactrim. Patient's family reports acute worsening following Bactrim use with worsening of weakness, confusion, and several witnessed falls without head trauma. These symptoms
were attributed to medication side effect at this time. However, as patient continued to worsen the family decided to bring him to the ED. on admission he was found to be in septic shock with pressure in the 50s to 60s over 30s to 40s, hypothermic
at 96.1 �F, WBC count 17.8, pH 7.1, bicarb 7. He was given 2 L IV bolus normal saline, started on vancomycin and Zosyn, blood cultures were drawn, UA was done with reflex to culture. He was started on Levophed. Serum chemistry revealed LETHA with
suspected ATN given hypotension. Patient was started on bicarb drip for acidemia. He was admitted to ICU for further medical management and increasing pressor requirement.
Today patient has no acute complaints and is resting comfortably. Patient is hemodynamically stable on 10 mcg of Levophed, bicarb drip. He has Leach catheter placed with no output, 2 bladder scans show minimal/no retention. He is saturating fine
on room air.
Past Medical History
Past Medical History: CAD, GERD, HTN, Hypercholesterolemia, NIDDM, Valvular Disease (Aortic stenosis) and Other (Alzheimer's disease, BPH)
Social History
Tobacco: Non-smoker
Alcohol: None
Drug: None
Personal:
Living: With Family
Employment: Not Employed
Family History
Family History: Reviewed & Not Pertinent
Allergies / Home Medications
Allergies
Allergy/AdvReac Type Severity Reaction Status Date / Time
No Known Allergies Allergy Verified 10/02/24 19:21
Home Medications
�Medication �Instructions �Recorded �Confirmed �Last Taken �Type
aspirin 325 mg tablet 325 mg PO DAILY 10/02/24 10/02/24 Unknown History
azelastine 137 mcg (0.1 %) nasal 1 spray intranasal BID 10/02/24 10/02/24 Unknown History
spray
donepezil 10 mg tablet 10 mg PO DAILY 10/02/24 10/02/24 Unknown History
losartan 50 mg tablet 50 mg PO DAILY 10/02/24 10/02/24 Unknown History
memantine 10 mg tablet 10 mg PO BID 10/02/24 10/02/24 Unknown History
metformin 500 mg tablet 500 mg PO BID 10/02/24 10/02/24 Unknown History
quetiapine 25 mg tablet 25 mg PO BID 10/02/24 10/02/24 Unknown History
rosuvastatin 40 mg tablet 40 mg PO DAILY 10/02/24 10/02/24 Unknown History
sulfamethoxazole 800 1 tab PO BID Infection 10/02/24 10/02/24 Unknown History
mg-trimethoprim 160 mg tablet
(Bactrim DS)
Review of Systems
-
History Source: Patient and Family
Constitutional: No Symptoms
EENT: No Symptoms
Respiratory: No Symptoms
Cardiac: No Symptoms
Abdomen/GI: No Symptoms
: No Symptoms
Musculoskeletal: No Symptoms
Skin: No Symptoms
Neuro: No Symptoms
Endocrine: No Symptoms
Hematologic/Lymphatic: No Symptoms
Vitals / Labs / Diagnostic Testing
Vital Signs
Temp Pulse Resp BP Pulse Ox
97.3 F 69 18 89/67 95
10/03/24 08:07 10/03/24 08:07 10/03/24 08:07 10/03/24 08:07 10/03/24 08:07
Lab Data
10/03/24 23:30
10/03/24 05:37
Laboratory Results
10/02/24 10/02/24
20:40 20:49
PT 16.8 H
INR 1.33
APTT 29.3
pH 7.18 L*
pCO2 21 L
pO2 118 H
HCO3 7.8 L*
O2 Delivery Level 95
Microbiology
10/02/24 21:09 Nasal Swab Influenza Types A & B (JULIA) - Final
Negative for Influenza A & B, NAAT
Negative results must be combined with clinical observations
and patient history.
Nucleic Acid Amplification test (NAAT)performed on the
[employer] platform.
Diagnostic Testing:
Physical Exam
-
HEENT: Normocephalic, Anicteric and Moist Mucous Membranes
Cardiovascular: S1/S2, Regular Rhythm, Murmur, Rub (None), Peripheral Edema (None) and Calf Tenderness (None)
Respiratory: Non-Labored Respirations and Other (Clear to auscultation anteriorly)
GI: Soft, Non Distended, Non Tender and Normal Bowel Sounds
Neurology: Awake and Alert
Skin: Warm and Dry
General: Comfortable
Assessment
-
ASSESSMENT
79 yo M pmhx of HTN, Alzheimer's disease, CAD, T2DM, BPH, GERD, aortic stenosis, who presented with worsening confusion, generalized weakness, decreased appetite that is gotten worse over the last week
#Septic shock
#ARF vs. ATN
#Lactic acidosis/high anion gap metabolic acidosis
#Acute Alteration in Mental Status
#UTI
#Hyperkalemia
#Transaminitis
#Nonischemic myocardial injury
#Alzheimer Dementia
#Hypertension
#Coronary artery disease
#Type 2 diabetes, non-insulin dependent
#BPH
#GERD
#Severe aortic stenosis
PLAN
Goals of care: Will have discussion with family later today, potential transition to comfort care given grim prognosis and significant medical history of decompensation secondary to dementia
Acute septic shock, likely secondary to urosepsis requiring pressors
Presumed UTI, treated outpatient with Bactrim
High anion gap metabolic acidosis/lactic acidosis secondary to urosepsis
- patient with positive SIRS criteria on admission (leukocytosis, hypothermia, hypotension) and likely source from recently treated UTI
- UA showing occult blood, few bacteria, urine culture pending, blood cultures drawn
- Lactate 5.9 with pH 7.18, bicarb 7 --given 2 x 50 mEq bolus bicarb, now on bicarb drip
- Given 2 L bolus normal saline -- still requiring pressors now on levo 10 mcg, with pressure 80s - 90s/60s - 80s
- Given 1 dose of IV Zosyn, on IV vancomycin and cefepime
- Will observe culture results and adjust antibiotics as necessary pending goals of care discussion
- Trend CBC and temperature curve
- Continue with pressors and wean as able
Acute renal failure with suspected acute tubular necrosis, questionable history of CKD given paucity of additional records
Hyperkalemia
- Potassium 5.7 --> 5.2 without ECG changes, creatinine 9.0 --> 8.8 (baseline creatinine unknown)
- Patient status post 2 L fluid bolus, however is anuric at this time
- x2 bladder scans show 0 cc fluid
- condom catheter placed
- Nephro consulted -- spoke with family on goals of care, they would not like to pursue any dialysis at this time
- Continue to monitor BMP
- Continue with 150 mEq bicarb drip at 150 cc/h
Altered mental status vs. Alzheimer's dementia
- Patient is awake alert and cooperative, however family endorses baseline of orientation only to person place and family members
- Patient has had slow, progressive cognitive and physical decline over the last several months which increased within the last week leading up to hospitalization
- Family is aware of poor prognosis and are willing to discuss goals of care with possible transition to comfort care pending discussion
Nonischemic myocardial injury
- Elevated troponins 2.07 �13.20
- ECG showing NSR, known RBBB
- Repeat echo done today showing normal biventricular size, normal systolic function without regional wall motion abnormalities, mild concentric LVH, severe
- Will continue to trend troponins
Transaminitis, likely secondary to shock liver
- AST/ALT 102/76
- No current complaints of upper abdominal pain, nausea, vomiting
- Right upper quadrant ultrasound ordered, will observe results
- Will continue to monitor with CMP
Severe aortic stenosis
- Repeat echo done today showing severe aortic stenosis, LVEF of 40 to 45%, mean pressure gradient of 47 mmHg
- Similar compared to prior report from May 2023
Nutrition
[id number] type 2 diabetes
- Patient on metformin 500 twice daily at home
- LDISS, target euglycemia 140�180
DVT PPx - SC heparin 5000 units q12
Stress ulcer prophylaxis � 40 mg IV twice daily Protonix
CODE STATUS � DNR
DIAGNOSTIC IMAGING
CR Chest Portable - 1 View:
FINDINGS: No focal consolidation, pleural effusion, or pneumothorax. The cardiomediastinal silhouette is normal. Chronic degenerative changes of the bilateral shoulders and spine.
IMPRESSION: No acute cardiopulmonary process.
Echocardiography Report:
CONCLUSIONS
Normal biventricular size and systolic function without regional wall motion
abnormality.
Mild concentric left ventricular hypertrophy.
Severe aortic stenosis (peak/mean/KERMIT: 75 mmHg/ 47 mmHg/0.7 cm2).
No significant change compared to the report of prior outside study of 05/2023
when KERMIT estimated at 0.6 cm2 and mean gradient reported at 63 mmHg.
[2024-10-03 09:21] LABS: Anti Streptolysin Negative (Negative)
--- NOTE | 2024-10-03 09:50 | PTCARENOTE ---
Assessment updated. Vital signs ongoing and as documented. Continue with hourly rounds and skin cares. Family all to bedside. Discussing goals of care and DNR status. Discuss family wishes. Follow up bedside with hospitalist, nephrology team at
bedside this morning. Pastoral care requested and with family. Continue emotional support and supportive cares. Prepping for morning rounds with insulation mechanic team.
[2024-10-03] MEDS: LEVOPHED 250 IV (10:36)
--- NOTE | 2024-10-03 10:36 | W.CON.NEPH ---
Consultation
-
Date/Time Consultation Requested: 10/03/2024 at 9 AM
Date/Time Consultation Performed: 10/03/2024 at 10 AM
Requesting Provider: Dr. Trotter
Performing Provider: Dr. Rosa
Reason for Consultation: Acute kidney injury
Medical History
-
Chief Complaint: Acute kidney injury
History of Present Illness:
79-year-old male with past medical history significant for essential hypertension, Alzheimer's Disease, CAD, type 2 diabetes, BPH and GERD who presented to [facility] ED worsening confusion, generalized weakness and decreased appetite. Patient family at
bedside to assist with HPI. Patient lives at home and has a generalized weakness that has progressively gotten worse in the last week. He did see PCP and started on Bactrim for UTI and has progressively gotten worse.
Renal consult for significant azotemia and metabolic acidosis
Creatinine 8.8 with a bicarbonate of 7 pH of 7.16
Patient is an uric
On pressor support
Past Medical History
Medical history significant for essential hypertension, Alzheimer's Disease, CAD, type 2 diabetes, BPH and GERD
Social History
Tobacco: Non-Smoker
Alcohol: None
Family History
Family History: Not Pertinent
Allergies / Home Medications
Allergy/AdvReac Type Severity Reaction Status Date / Time
No Known Allergies Allergy Verified 10/02/24 19:21
�Medication �Instructions �Recorded �Confirmed �Type
aspirin 325 mg tablet 325 mg PO DAILY 10/02/24 10/02/24 History
azelastine 137 mcg (0.1 %) nasal 1 spray intranasal BID 10/02/24 10/02/24 History
spray
donepezil 10 mg tablet 10 mg PO DAILY 10/02/24 10/02/24 History
losartan 50 mg tablet 50 mg PO DAILY 10/02/24 10/02/24 History
memantine 10 mg tablet 10 mg PO BID 10/02/24 10/02/24 History
metformin 500 mg tablet 500 mg PO BID 10/02/24 10/02/24 History
quetiapine 25 mg tablet 25 mg PO BID 10/02/24 10/02/24 History
rosuvastatin 40 mg tablet 40 mg PO DAILY 10/02/24 10/02/24 History
sulfamethoxazole 800 1 tab PO BID Infection 10/02/24 10/02/24 History
mg-trimethoprim 160 mg tablet
(Bactrim DS)
Review of Systems
-
Unable to obtain full review of systems at this time due to: Acuity
Physical Exam
Vital Signs
Vital Signs
Temp Pulse Resp BP Pulse Ox
97.3 F 69 18 89/67 95
10/03/24 08:07 10/03/24 08:07 10/03/24 08:07 10/03/24 08:07 10/03/24 08:07
Lab Results
WBC 19.5 10^3/uL (4.8-10.8) H 10/03/24 05:37
RBC 2.70 10^6/uL (4.70-6.10) L 10/03/24 05:37
Hgb Cancelled 10/03/24 23:30
Hct Cancelled 10/03/24 23:30
Plt Count 275 10^3/uL (130-400) 10/03/24 05:37
Sodium 139 mmol/L (135-145) 10/03/24 05:37
Potassium 5.2 mmol/L (3.5-5.1) H 10/03/24 05:37
Chloride 105 mmol/L (98-107) 10/03/24 05:37
Carbon Dioxide 13 mmol/L (22-30) L* 10/03/24 05:37
BUN 119 mg/dl (9-20) H* 10/03/24 05:37
Creatinine 8.8 mg/dL (0.7-1.3) H* 10/03/24 05:37
eGFR 5.60 10/03/24 05:37
Glucose 134 mg/dl (70-99) H 10/03/24 05:37
Calcium 7.2 mg/dl (8.4-10.2) L 10/03/24 05:37
Phosphorus 8.0 mg/dl (2.5-4.5) H 10/02/24 23:03
Albumin 3.3 g/dl (3.5-5.0) L 10/03/24 05:37
Physical Exam
General no acute distress
HEENT no cephalic atraumatic extraocular muscle intact no scleral icterus no JVD neck supple
lungs clear to auscultation bilateral
heart regular S1-S2 positive
abdomen soft nontender positive bowel sounds
extremities no edema pulses present bilateral
Neurologically nonfocal alert and oriented x 1
Skin no lesions no abrasions no petechiae
Psych normal affect no bizarre behavior
Data Reviewed
-
Radiology: Image Personally Visualized and interpreted
Assessment/Plan
-
79-year-old male with past medical history significant for essential hypertension, Alzheimer's Disease, CAD, type 2 diabetes, BPH and GERD who presented to [facility] ED worsening confusion, generalized weakness and decreased appetite. Patient family at
bedside to assist with HPI. Patient lives at home and has a generalized weakness that has progressively gotten worse in the last week. He did see PCP and started on Bactrim for UTI and has progressively gotten worse.
Renal consult for significant azotemia and metabolic acidosis
Creatinine 8.8 with a bicarbonate of 7 pH of 7.16
Patient is an uric
On pressor support
Impression.
Acute kidney injury. Recent Bactrim outpatient
Metabolic acidosis acute
Septic shock.
Altered mental status.
Chronic dementia.
Plan.
Urinalysis no indication of UTI although patient just completed antibiotic/suspect acuity is ATN secondary to hemodynamic instability
Noted hematuria but no RBCs 3+ albumin on urinalysis= hematuria likely residual from UTI
Bladder scan no postvoid residual
Continue alkali therapy bicarbonate increased to 150 cc/h
Conservative therapy as discussed with the family at bedside stating that they would not want hemodialysis.
With that said, there is no absolute acute need at this time though if they did elect to do so without any urine output suspect he needed in the next 24 hours.
Discussed with ICU team.
Total Time Spent with Patient (in minutes): 35
--- NOTE | 2024-10-03 10:37 | CON.ID ---
Consultation
-
Date/Time Consultation Requested: October 02, 2024 9059
Date/Time Consultation Performed: October 03, 2024 1040
Requesting Provider: ALEJO Miller
Performing Provider: Dr. Sierra Lr
Reason for Consultation: Sepsis
Chief Complaint / Past History
Chief Complaint
Confusion, weakness, poor appettite
History of Present Illness
History obtained from at bedside due to pt with dementia. He is a 79 year old male with DM2, CAD, BPH who presented to ED on 10/02 with worsening mental status, weakness and fall. Per , pt had slow mental decline x 2 weeks. Pt without
specific complaints at the time- no cough, no urine symptoms, no fevers. He saw his PCP for physical exam on 09/26. states she was told UA positive and he was started on Bactrim DS 1 tab bid. Of note UA neg LE, neg nitrite, 0-5 WBC, Ucx less
than 10K bacteria. After taking the Bactrim, the patient deteriorated the next day with poor appetite, weakness, confusion. No ill contacts. No travel history. In ED, T= 96.2, hypotensive BP 62/40 requiring pressor, WBC 17.8, lactic acid 7.6, LETHA
Crcl 6. CXR no PNA, UA neg. He received Vanco, Zosyn, cefepime in ED.
Past History
Additional Past Medical History:
Dementia
Diabetes mellitus type 2
hypertension
CAD status post stent
Aortic stenosis
BPH
HLD
diverticulitis status post left colon resection
IBS
Right inguinal hernia repair
Cataract surgery
Allergy History:
No Known Allergies Allergy (Verified 10/02/24 19:21)
Medications Reviewed: Yes
Current Antibiotics:
Vancomycin
Cefepime
Social History
Tobacco: Former Smoker
Alcohol: Daily (1 beer)
Drug: None
Personal:
Living: With Family
Review of Systems
Review of Systems
Unable to obtain due to dementia.
Vital Signs
Temp Pulse Resp BP Pulse Ox
97.3 F 69 18 89/67 95
10/03/24 08:07 10/03/24 08:07 10/03/24 08:07 10/03/24 08:07 10/03/24 08:07
Physical Exam
Physical Exam
Constitutional: Acutely Ill and Chronically Ill
Head: Other (No frontal or maxillary sinus tenderness)
Eyes: Sclera Anicteric
Cardiovascular: Regular Rate and S1/S2
Pulmonary: Clear
Gastrointestinal: Soft, Non Tender, Non Distended and Normal Bowel Sounds
Genito-Urinary: Negative Suprapubic Tenderness or CVA Tenderness
Extremities: Negative Edema
Musculoskeletal: Negative Joint Swelling or Joint Effusion
Skin: Negative Rash
Neurological: Other (lethargic); Negative Meningeal Signs
Lab / Diagnostic Study Results
10/03/24 23:30
10/03/24 05:37
Abs Immat Gran (auto) 0.1 10^3/uL (0-0.05) H 10/02/24 19:40
Absolute Neuts (auto) 15.2 10^3/uL (1.4-6.5) H 10/02/24 19:40
Absolute Lymphs (auto) 1.4 10^3/uL (1.2-3.4) 10/02/24 19:40
Absolute Monos (auto) 1.0 10^3/uL (0.1-0.6) H 10/02/24 19:40
Absolute Basos (auto) 0.0 10^3/uL (0-0.2) 10/02/24 19:40
Immature Gran % 0.7 % (0-0.5) H 10/02/24 19:40
Neutrophils % 85.7 % (42.2-75.2) H 10/02/24 19:40
Lymphocytes % 8.0 % (20.5-51.1) L 10/02/24 19:40
Monocytes % 5.5 % (1.7-9.3) 10/02/24 19:40
Eosinophils % 0.0 % (0-6) 10/02/24 19:40
Basophils % 0.1 % (0-2) 10/02/24 19:40
ESR 55 mm/hour (0-20) H 10/03/24 05:37
PT 16.8 Sec (11.4-14.6) H 10/02/24 20:49
INR 1.33 10/02/24 20:49
Lactic Acid 3.5 mmol/L (0.7-2.0) H 10/03/24 05:37
Ur Squamous Epith Cells 0-2 /LPF (Few) 10/02/24 20:10
Microbiology Results
Micro:
10/02/24 21:09 Nasal Screen MRSA (PCR) - Final
Nose MRSA not detected - performed by PCR methodology.
10/02/24 21:09 Influenza Types A & B (JULIA) - Final
Nasal Swab Negative for Influenza A & B, NAAT
Negative results must be combined with clinical observations
and patient history.
Nucleic Acid Amplification test (NAAT)performed on the
[employer] NOW platform.
10/02/24 20:27 Blood Culture - Pending
Blood/Venous
10/02/24 19:40 Urine Culture - Pending
Urine
10/02/24 19:40 Blood Culture - Pending
Blood/Venous
10/02/24 CXR: No acute cardiopulmonary process.
Assessment / Plan
# SIRS vs septic shock
# LETHA
# Recent Bactrim
# Elevated troponin
- Outpatient 09/26 UA negative.
- UA here neg. CXR neg.
- COVID neg. Influenza neg.
- Blood cx's pending.
- Per Assistant Loan Processor, pt is transitioning to comfort measure.
-ID will sign off.
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
Dementia
Diabetes mellitus type 2
hypertension
CAD status post stent
Aortic stenosis
BPH
HLD
diverticulitis status post left colon resection
IBS
Right inguinal hernia repair
Cataract surgery
--- NOTE | 2024-10-03 11:06 | CHAP ---
Addendum entered by Maryann Pope 10/03/24 15:02:
Fr. Hook did provide the Sacrament as requested.
Original Note:
Staff Psychologist request relayed: Fr. Hook is on his way to provide Sacrament of the Sick (Last Rites).
[2024-10-03 11:27] LABS: Glucose - Point of Care 139 mg/dl (70-99)
--- NOTE | 2024-10-03 11:48 | PTCARENOTE ---
Update with trackman team. Updated plan of cares. Pastoral cares at bedside with family. Support provided. Solar Electric Practitioner to sit with family to discuss goals of care, family wishes and plan of care from here. Continue supportive cares. Will follow
up with pharmacy post meeting.
--- NOTE | 2024-10-03 11:51 | CM ---
Spoke with patient's to obtain information for assessment. Patient's stated that patient lives with her in a one story home with one step in an [place] community. He needs assistance/supervision with all ADLs, personal care, dressing and
bathing. She does all the cooking, cleaning, laundry and invoice machine operator including yard work. She has 3 children who do not live far and they are supportive as well. 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
shopping. She denied any DME with exception of a walker that patient's son just provided yesterday and a shower chair that they do not use. Patient has never had VN services. He has not been to a SNF.
Patient has a prescription plan and uses, [facility] in [place] for all of his medications.
His PCP is, not listed, will need to confirm with .
Patient's stated that patient is not doing well and at this time, no discharge plans can be discussed as the situation is fluid.
Plan: Case management will continue to follow and assist with discharge planning. Unclear at this time.
--- NOTE | 2024-10-03 12:08 | PHA.VAN.FU ---
Vancomycin Assessment / Plan
- Assessment
Renal Function: Stable (9.0,8.4,8.8)
WBC's are: Trending Up
Concomitant Antimicrobials: cefepime
- Dosing Plan
Continue: dose by random level ( last dose 1500 mg 10/02 2036); SCr 8.8
Dosing by Level: Hold off on dosing today
- Monitoring Plan
Random Level: ordered AM 10/04/24
- Follow Up
Pharmacy will continue to follow.
Vancomycin Follow UP
- -
Patient Age: 79
Patient Sex: Male
Vancomycin Day #: 1
Indication: Genito-Urinary Tract
Requesting Provider: Sha
Height / Weight:
Height 5 ft 9 in
Actual Weight 66.8 kg
Pertinent Past Medical History: recent UTI - failed outpt Bactrim
- Vital Signs / Lab Results
Temp Pulse Resp BP Pulse Ox
97.8 F 67 15 90/62 96
10/03/24 11:53 10/03/24 11:05 10/03/24 11:05 10/03/24 11:00 10/03/24 11:47
Lab Results - Hematology
10/02/24 10/03/24
19:40 05:37
WBC 17.8 H 19.5 H
Lab Results - Chemistry
10/02/24 10/02/24 10/03/24
19:40 23:03 05:37
BUN 113 H* 111 H* 119 H*
Creatinine 9.0 H* 8.4 H* 8.8 H*
Estimated Creat Clear 6 7 6
Albumin 4.0 3.3 L
10/02/24 10/02/24 10/03/24
19:39 23:03 05:37
Lactic Acid 7.6 H* 5.9 H* 3.5 H
Lab Results - Urine
10/02/24
20:10
Urine Nitrite (Reflex) Negative
Leukocyte Esterase Rfl Negative
Ur Squamous Epith Cells 0-2
Microbiology Results
10/02/24 21:09 Nasal Screen MRSA (PCR) - Final
Nose MRSA not detected - performed by PCR methodology.
10/02/24 21:09 Influenza Types A & B (JULIA) - Final
Nasal Swab Negative for Influenza A & B, NAAT
Negative results must be combined with clinical observations
and patient history.
Nucleic Acid Amplification test (NAAT)performed on the
[employer] NOW platform.
--- NOTE | 2024-10-03 12:38 | W.PN.UPDATE ---
Update Note
Progress Note Update
Conversation held with family members, including , Caroline, daughters Judith and Sonali, son Gautam and sister Manuel. All questions were answered. already came to bedside for last rights. Family is interested in transitioning to comfort
care with no additional aggressive interventions, which includes stopping vasopressors. All questions were answered and emotional support was provided. Primary hospitalist made aware.
[2024-10-03] MEDS: SODIUM BICARBONATE IV (13:03)
--- NOTE | 2024-10-03 13:03 | PTCARENOTE ---
Transition patient to comfort measures at this point. Family at bedside. Product Safety Engineer gave last rights. Family arriving to support . Comfort measures, supportive cares, emotional support and teaching ongoing. Tire Mechanic team was at bedside, review
plan of cares, labs and assessment trends. Update and work with family toward comfort measure decision. Family does state patient has living will dnr and his wishes. Support from critical care team ongoing. Complete bed bath and massage provided.
[2024-10-03] MEDS: SUBLIMAZE 25 MCG IV ×2 (14:29→16:08)
[2024-10-03] MEDS: ATIVAN 0.5 MG IV (18:08)
[2024-10-03] MEDS: NSS (PRESERVATIVE FREE) 0.25 ML IV (18:09)
--- NOTE | 2024-10-03 18:30 | PTCARENOTE ---
Continue skin cares, comfort measures and supportive cares. Complete bedbath. Continue to reinforce end of life teaching. Supportive cares and emotional support. Continue end of life assessment follow up evaluation. Family at bedside. Update with
tram driver team.
--- NOTE | 2024-10-03 20:00 | PTCARENOTE ---
Rec'd pt unresponsive, on comfort care, resp easy/ nonlabored, cpot 0, on RA, lungs decr, condom cath on, family at bedside & updated, support given
--- NOTE | 2024-10-04 | PTCARENOTE ---
pt unresponsive, son at bedside
[2024-10-04 00:37] VITALS: BP 78/31
[2024-10-04 01:42] VITALS: BP 80/34
[2024-10-04] MEDS: ATIVAN 0.5 MG IV ×2 (03:45→11:34)
--- NOTE | 2024-10-04 03:48 | PTCARENOTE ---
ativan 0.5mg iv given for anx, CHG bath done, inc sm amt loose mucoid stool
[2024-10-04 03:54] VITALS: BP 62/36
[2024-10-04 05:43] VITALS: BP 81/41
[2024-10-04 07:05] VITALS: BP 86/45
--- NOTE | 2024-10-04 07:10 | PTCARENOTE ---
Bedside handoff. Pt's daughter & at the bedside. Supportive care provided. He is minimally responsive. Informed of the plan of care regarding comfort measures and to call for any S/S of discomfort if RN not present in the room.
--- NOTE | 2024-10-04 08:05 | W.PN.HOSP.TC ---
Addendum entered and electronically signed by Sarah Trotter MD 10/04/24 16:08:
Stage 1 bilateral heel pressure injuries, POA....Stage 1sacral pressure injury, POA.
Addendum entered and electronically signed by Sarah Trotter MD 10/04/24 16:04:
Total DC time 40 minutes
Original Note:
Today's Communication/Plan
-
cont comfort measures
Assessment / Plan
Assessment / Plan
HPI: 79-year-old male with past medical history significant for essential hypertension, Alzheimer's Disease, CAD, type 2 diabetes, BPH, GERD, aortic stenosis; presented to ED with worsening confusion, generalized weakness and decreased appetite.
Patient's family at bedside to assist with HPI. Patient lives at home and has a generalized weakness that has progressively gotten worse in the last week. He did see PCP and started on Bactrim for UTI and has progressively gotten worse. Patient now
with increased confusion and decreased appetite. Family denies any fevers, chills, cough, shortness of breath, chest pain, nausea, vomiting, constipation or urinary symptoms. Patient is known to have chronic diarrhea.
A/P:
# Confusion 2/2 acute metabolic encephalopathy due to sepsis/uremia, in setting of underlying Alzheimer's Disease
cont comfort measures
# Septic shock POA, source possibly pyelonephritis
noted pt was recently started with Bactrim for presumed UTI (per family, was diagnosed based on increased confusion)
Off empiric abx cefepime, vancomycin
Off Levophed
cont comfort measures
# LETHA/Renal Failure, likely ATN on CKD.
# severe metabolic acidosis POA
Cr 9 on admission, baseline SCr WNL
cont comfort measures
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
cont comfort measures
# Troponin elevation 2/2 non-ischemic myocardial injury secondary to underlying sepsis exacerbated by renal failure.
# Aortic stenosis.
cont comfort measures
# NIDDM
# HTN
DVT PPX - SCDs
Code Status - DNR/DNI.
DW and daughter at bedside
Anticipated Discharge: Within 24 hours
Subjective/Interval History
-
Date of Service: October 04, 2024
Objective Data
-
Vital Signs:
Vital Signs
Temp Pulse Resp BP Pulse Ox
37.1 C 81 16 81/41 90
10/03/24 16:00 10/04/24 06:00 10/04/24 06:00 10/04/24 05:43 10/03/24 18:25
I&O
10/03/24 10/04/24 10/05/24
06:59 06:59 06:59
Intake Total 2049 1005.0 / 1005.0
Balance 2049 1005.0 / 1005.0
Review of Systems
-
Unable to obtain full review of systems at this time due to: Acuity
Physical Exam
-
General: Well Developed, Well Nourished, No Apparent Distress, Comfortable and Appears Chronically Ill; Negative Respiratory Distress
HEENT: Normocephalic, Atraumatic, Nose Appears Normal and Ears Appear Normal; Negative Oxygen
Respiratory: Non Labored Respirations; Negative Accessory Resp Muscle Use
Cardiac: Regular Rhythm and S1/S2
Skin: Warm and Dry
Psych: Calm
--- NOTE | 2024-10-04 11:30 | PTCARENOTE ---
Family called RN into room. He is intermittently moaning. Increased WOB. Medicated as ordered. Family informed that this may suppress his respirations and drop his BP. They verbalized their understanding. Supportive care provided. Pt repositioned
and mouth care provided.
[2024-10-04] MEDS: NSS (PRESERVATIVE FREE) 0.25 ML IV (11:34)
[2024-10-04] MEDS: SUBLIMAZE 25 MCG IV (11:34)
--- NOTE | 2024-10-04 11:48 | PN.CDI ---
CDI
- -
CDI:
Physician Documentation Request
Admit Date: 10/02/24 21:58
Dear Doctor Rose Marie,
Patient admitted with sepsis.
10/03 Nursing skin assessment, 'Stage 1 bilateral heel pressure injuries, POA....Stage 1sacral pressure injury, POA.'
Physician documentation of the type and location of wounds is required for compliant documentation. Based on the above clinical findings and your assessment, please provide the following in your progress note:
Type (etiology) of ulcer/wound:
- Pressure (decubitus) ulcer
- Other
- Unable to determine
For a pressure ulcer, please also include the stage* of the ulcer:
- Stage 1 - Skin intact, non-blanchable redness
- Stage 2 - Partial thickness loss of dermis, includes intact or open blister
- Stage 3 - Full thickness tissue not including bone, tendon or muscle
- Stage 4 - Full thickness tissue loss, including exposed bone, tendon or muscle
- Unstageable - Full thickness loss in which the base of the ulcer is covered by slough (yellow, paul, hernandes, green or brown) and/or eschar (paul, brown or black) in the wound bed.
- Unable to determine
Use of terms such as suspected, likely, concern for, or probable (associated with a specific diagnosis that is being evaluated, monitored, or treated as if it exists) are acceptable and can be coded in the inpatient setting, when documented at the
time of discharge.
Thank you,
Lela MEDEROS,RN,CCDS
CDI Specialist
Available via tiger text
Please use your independent medical judgment in providing your response.
*Source: National Pressure Ulcer Advisory Panel (NPUAP)
[2024-10-04 12:23] VITALS: BP 35/21
--- NOTE | 2024-10-04 12:37 | PTCARENOTE ---
Dr. Trotter notified via TT that pt has no spontaneous breaths or heart tones. Family is aware pt has passed. Supportive care provided.
--- NOTE | 2024-10-04 15:58 | W.PN.DEATH ---
Pronouncement of
-
Called to see patient to pronounce.
No spontaneous heart tones or respirations noted.
Patient not responsive to verbal stimuli.
Patient is pronounced .
Time of : 12:32
Date of : 10/04/24
Family Notified: Yes (family updated at bedside )
--- NOTE | 2024-10-04 15:59 | W.DCSUMMARY ---
Discharge Summary
Discharge Data
Date of Admission: 10/02/24
Date of Discharge: 10/04/24
-
Pending Results: No
Hospital Course
Principal Diagnosis:
Presumed septic shock
Acute kidney injury/acute renal failure
Severe metabolic acidosis
Chronic Diagnoses:�
Kyr-depowix-rhqwwqeoz diabetes
Hypertension
Alzheimer's Disease,
CAD,
BPH,
GERD,
Aortic stenosis
Consultations:�
Reo Asset Manager
Sheep Rancher
Infectious disease
Procedures:�
None
Clinical course:�
This is a 79-year-old male with past medical history as stated above, who presented with worsening confusion, generalized weakness and decreased appetite.
He was noted to be in shock, likely septic, on admission.
Pressor Levophed was started for BP support.
He was covered with empiric antibiotics cefepime and vancomycin.
He was also in acute kidney injury/renal failure on admission with severe metabolic acidosis (serum creatinine at 9 on admission, and baseline was within normal limits per PCP).
Due to his severe clinical condition and poor prognosis, goals of care was discussed with his family.
They have elected to transition the patient to comfort measures.
The patient was started with comfort measures, hence therapeutic medications were discontinued.
He peacefully on 10/04/2024, and the time of was at 12:32 PM.
His family was at bedside at pronouncement.
Discharge Plan
-
Referrals:
UNKNOWN - PT DOES,NOT KNOW [Family Provider]
Prescriptions:
No Action
losartan 50 mg tablet
50 mg PO DAILY
quetiapine 25 mg tablet
25 mg PO BID
metformin 500 mg tablet
500 mg PO BID
donepezil 10 mg tablet
10 mg PO DAILY
azelastine 137 mcg (0.1 %) spray,non-aerosol
1 spray INTRANASAL BID
rosuvastatin 40 mg tablet
40 mg PO DAILY
memantine 10 mg tablet
10 mg PO BID
sulfamethoxazole-trimethoprim [Bactrim DS] 800-160 mg Tablet
1 tab PO BID
Rx Instructions:
09/26/24 x7 days
aspirin 325 mg Tablet
325 mg PO DAILY
Discharge Date and Time
Print Language: AMHARIC
--- NOTE | 2024-10-04 16:06 | CM ---
Patient 12:32 PM on this date, 10/04/24.
[2024-10-04 23:37] LABS: Myeloperoxidase Antibody 0 AU/mL (0-19); Serine Protease-3, IgG 0 AU/mL (0-19)
[2024-10-05 01:54] LABS: ANA, IgG Reflex to HEp-2 None Detected (None Detected)
[2024-10-05 13:39] LABS: Rheumatoid Agglutinin Less Than 10 IU (<10 IU)
[2024-10-06 01:29] LABS: Albumin 2.97 g/dL (3.75-5.01); Alpha 1 Globulin 0.35 g/dL (0.19-0.46); Alpha 2 Globulin 0.69 g/dL (0.48-1.05); SPEP IFE Reflex Not Done; Total Protein-Electrophoresis 5.3 g/dL (6.3-8.2)
== END 2024-10-04 12:45 | disposition expired | DRG 871 ==
LOC: ICU 21:58
PROVIDERS: Nurse Practitioner Family; Nurse Practitioner Primary Care; ADMITTING PHYSICIAN Internal Medicine; ATTENDING PHYSICIAN Internal Medicine; EMERGENCY PHYSICIAN Emergency Medicine; OTHER PHYSICIAN Internal Medicine Critical Care Medicine; OTHER PHYSICIAN Internal Medicine Infectious Disease; OTHER PHYSICIAN Internal Medicine Nephrology
DX: A41.9 Sepsis, unspecified organism (principal); G93.41 Metabolic encephalopathy; K57.33 Diverticulitis of large intestine without perforation or abscess with bleeding; R65.21 Severe sepsis with septic shock; N17.0 Acute kidney failure with tubular necrosis; F02.84 Dementia in other diseases classified elsewhere, unspecified severity, with anxiety; E87.20 Acidosis, unspecified; I5A Non-ischemic myocardial injury (non-traumatic); L89.621 Pressure ulcer of left heel, stage 1; L89.611 Pressure ulcer of right heel, stage 1; L89.151 Pressure ulcer of sacral region, stage 1; D50.0 Iron deficiency anemia secondary to blood loss (chronic); E11.22 Type 2 diabetes mellitus with diabetic chronic kidney disease; I35.2 Nonrheumatic aortic (valve) stenosis with insufficiency; I12.9 Hypertensive chronic kidney disease with stage 1 through stage 4 chronic kidney disease, or unspecified chronic kidney disease; N18.9 Chronic kidney disease, unspecified; E78.00 Pure hypercholesterolemia, unspecified; E87.5 Hyperkalemia; Z66 Do not resuscitate; N40.0 Benign prostatic hyperplasia without lower urinary tract symptoms; R74.01 Elevation of levels of liver transaminase levels; I25.10 Atherosclerotic heart disease of native coronary artery without angina pectoris; K21.9 Gastro-esophageal reflux disease without esophagitis; G30.8 Other Alzheimer's disease; Z51.5 Encounter for palliative care; Z11.52 Encounter for screening for COVID-19; Z79.82 Long term (current) use of aspirin; Z79.84 Long term (current) use of oral hypoglycemic drugs; Z79.899 Other long term (current) drug therapy; Z87.891 Personal history of nicotine dependence; Z90.49 Acquired absence of other specified parts of digestive tract; Z95.5 Presence of coronary angioplasty implant and graft
CPT/HCPCS: 71045; 80048; 80053; 81003; 81015; 82805; 82962; 83516; 83605; 83735; 84100; 84155; 84165; 84484; 85014; 85018; 85025; 85027; 85610; 85652; 85730; 86038; 86063; 86160; 86430; 86850; 86900; 86901; 87040; 87070; 87086; 87502; 87641; 87811; 93005; 93306; 96361; 96374; 96375; 99285